=== PATIENT | male | born 1950 | race Caucasian/White ===

== ENCOUNTER 2021-10-20 14:33 | Emergency (ER) | payer MEDICARE ==
[2021-10-20 15:30] LABS: HEMOGLOBIN 15.2 gm/dl (14.0-17.5); RED BLOOD COUNT 4.82 M/UL (4.20-5.50); WHITE BLOOD COUNT 6.9 K/UL (4.5-11.0)
[2021-10-20 16:08] LABS: BUN/CREATININE RATIO 9 (0-10)
[2021-10-20] MEDS ORDERED: ZOFRAN 4 MG TAB4 MG PO (19:24)
== END 2021-10-20 19:45 | disposition home or self-care (01) ==
LOC: ER1 14:33
PROVIDERS: Physician Assistant
DX: R10.9 Unspecified abdominal pain (principal); R11.0 Nausea; R19.7 Diarrhea, unspecified; R10.817 Generalized abdominal tenderness; I10 Essential (primary) hypertension; Z88.5 Allergy status to narcotic agent
CPT/HCPCS: 71045; 80053; 82550; 82553; 83690; 84484; 85025; 93005; 96361; 96374; 96375; 99284; C9113; J2405; Q9967